=== PATIENT | male | born 1985 | race American Indian/Alaskan Native ===

== ENCOUNTER 2016-09-19 14:57 | Emergency (ER) | payer BC ==
[2016-09-19] MEDS ORDERED: TYLENOL PO ONE (15:36)
--- NOTE | 2016-09-19 15:38 | Emergency Department Report ---
- General Chief Complaint: Wound/Laceration Stated Complaint: FINGER LAC Time Seen by Provider: 09/19/16 15:35 Source: patient Mode of arrival: Ambulatory Limitations: No Limitations - History of Present Illness Initial Comments: 30-year-old -French male comes in with no past medical history for complaint of laceration to the fourth and fifth digit. Patient reports that he put his hand in his pocket and cut himself on his pocket knife. Leading somewhat controlled in triage with dressing and pressure. - Related Data Previous Rx's Medication Instructions Recorded Last Taken Type Acetaminophen/Codeine [Tylenol #3] 1 tab PO Q6H PRN #20 tab 09/19/16 Unknown Rx Allergies Allergy/AdvReac Type Severity Reaction Status Date / Time Penicillins Allergy Unknown Verified 09/19/16 15:17 ED Review of Systems ROS: Stated complaint: FINGER LAC Other details as noted in HPI Constitutional: denies: chills, fever Eyes: denies: eye pain, eye discharge, vision change Skin: other ED Past Medical Hx - Past Medical History Previous Medical History?: No - Surgical History Additional Surgical History: RIGHT HAND SURGERY - Social History Smoking Status: Current Every Day Smoker Substance Use Type: None - Medications Home Medications: Home Medications Medication Instructions Recorded Confirmed Last Taken Type Acetaminophen/Codeine [Tylenol #3] 1 tab PO Q6H PRN #20 tab 09/19/16 Unknown Rx ED Physical Exam - General Limitations: No Limitations General appearance: alert, in no apparent distress - Head Head exam: Present: atraumatic, normocephalic - Expanded Upper Extremity Exam Left Hand Wrist exam: Present: other (Flexor Digitorum profundus, Flexor pollicis longus intact) - Neurological Exam Neurological exam: Present: alert, oriented X3 - Psychiatric Psychiatric exam: Present: normal affect, normal mood - Skin Skin exam: Present: warm, dry, other (left fifth digit laceration to the palmar side proximal, left fourth digit laceration to the palmar thigh proximal moderate amount of blood loss) ED Course Vital Signs 09/19/16 09/19/16 09/19/16 15:13 15:56 15:58 Temperature 98.1 F Pulse Rate 66 72 Respiratory 18 16 18 Rate Blood Pressure 108/68 Blood Pressure 143/94 [Left] O2 Sat by Pulse 98 100 Oximetry - Laceration /Wound Repair Left Palm Finger Wound Location: upper extremity Wound Length (cm): 2 Wound's Depth, Shape: into muscle Wound Explored: clean Irrigated w/ Saline (ccs): 20 Betadine Prep?: Yes Anesthesia: 1% Lidocaine Wound Debrided: minimal Wound Repaired With: sutures Suture Size/Type: 5:0 Number of Sutures: 7 Progress: Suture to the fifth digit patient tolerated well with moderate blood loss Left Anterior Palm Hand Wound Location: upper extremity Irrigated w/ Saline (ccs): 20 Betadine Prep?: Yes Anesthesia: 1% Lidocaine Volume Anesthetic (ccs): 10 Wound Debrided: minimal Wound Repaired With: sutures Suture Size/Type: 5:0 Number of Sutures: 6 Layer Closure?: No Deep Layer Suture Size/Type: 5:0 Progress: Due to to the fourth digit left hand patient tolerated well minimal blood loss ED Medical Decision Making - Radiology Data Radiology results: report reviewed Ordering Physician: MILDRED REYES Date of Service: 09/19/16 Procedure(s): XR hand 2V LT Accession Number(s): [id number] cc: MILDRED REYES Fluoro Time In Minutes: Left hand 2 views. Findings: No fractures or other acute findings are seen. The Transcribed By: MRP Dictated By: TIANA MONTES MD Electronically Authenticated By: TIANA MONTES MD Signed Date/Time: 09/19/16 1614 - Medical Decision Making Patient's been evaluated by this provider fast track x-ray of left hand completed with no fracture. We will administer pain medication as well as electronic Critical care attestation.: If time is entered above; I have spent that time in minutes in the direct care of this critically ill patient, excluding procedure time. ED Disposition Clinical Impression: Laceration of finger of left hand Qualifiers: Encounter type: initial encounter Qualified Code(s): S61.219A - Laceration without foreign body of unspecified finger without damage to nail, initial encounter Disposition: DISCHARGED TO HOME OR SELFCARE Is pt being admited?: No Does the pt Need Aspirin: No Condition: Stable Instructions: Suture Care (ED), Laceration (ED) Additional Instructions: Please keep hands clean and dry. Dressing change daily follow up in - for suture removal and he couldn't use a Tylenol for pain. Follow-up with hand specialist that we refer to 2. Prescriptions: Acetaminophen/Codeine [Tylenol #3] 1 tab PO Q6H PRN #20 tab PRN Reason: Pain Referrals: PRIMARY CARE, [Primary Care Provider] - 3-5 Days MALINI XIONG MD [Staff Physician] - 3-5 Days Forms: Work/School Release Form(ED)
[2016-09-19 15:58] VITALS: BP 143/94
--- NOTE | 2016-09-19 16:27 | XRay Report ---
Left hand 2 views. Findings: No fractures or other acute findings are seen. The
[2016-09-19] MEDS ORDERED: XYLOCAINE 2% INFILTRATI ONE ×2 (16:50→16:53)
[2016-09-19] MEDS ORDERED: BOOSTRIX IM ONE (18:16)
== END 2016-09-19 19:32 | disposition home or self-care (01) ==
LOC: ED 14:57
DX: S61.217A Laceration without foreign body of left little finger without damage to nail, initial encounter (principal); S61.215A Laceration without foreign body of left ring finger without damage to nail, initial encounter; F17.200 Nicotine dependence, unspecified, uncomplicated; Z88.0 Allergy status to penicillin
CPT/HCPCS: 90471; 90715